=== PATIENT | male | born 1985 | race Caucasian/White ===

== ENCOUNTER 2017-05-30 11:56 | Emergency (ER) | payer OTHER ==
[~2017-05-30] VITALS: Ht 182.9 cm; Wt 100.0 kg
[2017-05-30] MEDS ORDERED: LIDOCAINE HCL/PF 1% 2 ML VIAL ONE (12:18)
[2017-05-30 13:10] VITALS: BP 166/116
== END 2017-05-30 13:37 | disposition home or self-care (01) ==
LOC: EMS 11:57
DX: S61.212A Laceration without foreign body of right middle finger without damage to nail, initial encounter (principal); W23.1XXA Caught, crushed, jammed, or pinched between stationary objects, initial encounter; Y93.89 Activity, other specified; Y92.89 Other specified places as the place of occurrence of the external cause; Y99.9 Unspecified external cause status
CPT/HCPCS: 12001; 73130; 99284; J3490